=== PATIENT | female | born 1960 | race Caucasian/White ===

== ENCOUNTER → 2017-04-07 | Outpatient (CLI) | payer BC, OTHER ==
[~2017-04-07] MED LIST: ALP25 PO; ESCI10TA8 PO; ESCI20TA38 PO; PANT40TA65 PO; [UNRECOGNIZED DRUG - OTHER]
--- NOTE | 2017-04-08 09:13 | RADIOLOGY IMAGING REPORT ---
FACILITY: [facility] - [place] PATIENT NAME: GENOVEVA BARAJAS : [id number] MR: [id number] V: [id number] EXAM DATE: ORDERING PHYSICIAN: TIANNA ORTIZ TECHNOLOGIST: Sabine Alcazar PROCEDURE:BILATERAL DIGITAL SCREENING MAMMOGRAM WITH CAD ASSISTED INTERPRETATION & 3D TOMOSYNTHESIS COMPARISON:Prior mammograms 02/20/16, 12/21/14, 06/10/11 INDICATIONS:SCREENING FINDINGS: Moderately heterogeneous fibroglandular tissue is seen throughout the breasts. The parenchymal pattern has remained stable allowing for difference in mammographic technique & patient positioning. There is no evidence of malignant appearing mass, malignant appearing calcifications or other secondary sign of malignancy in either breast. DIAGNOSTIC CATEGORY 2--BENIGN FINDING. RECOMMENDATIONS: ROUTINE MAMMOGRAM AND CLINICAL EVALUATION. IMPRESSION: BIRADS 2: Benign finding No significant abnormality is seen Dictated by: Piedad Arroyo M.D. on 04/07/2017 at 15:04 Transcribed by: CHICO on 04/07/2017 at 15:34 Approved by: Piedad Arroyo M.D. on 04/08/2017 at 9:11 [facility]
== END ==
LOC: MAMO 01:18
PROVIDERS: ATTEND Nurse Practitioner Family
DX: Z12.31 Encounter for screening mammogram for malignant neoplasm of breast (principal)
CPT/HCPCS: 77063; 77067

== ENCOUNTER → 2018-05-21 | Outpatient (CLI) | payer BC, OTHER ==
[~2018-05-21] MED LIST changes: +AMIN1CAP5 PO; +AMOX-559 PO; +ESCI20TA8 PO; +FLU30SYR10 IM; +GLUC-198 PO; +HYDR-4225 PO; +MELO-207 PO; +NYST100016 PO; +RANI-366 PO
--- NOTE | 2018-05-25 10:08 | RADIOLOGY IMAGING REPORT ---
FAC[place] [facility] [place]IENT NAME: GENOVEVA BARAJAS : [id number] MR: [id number] V: [id number] EXAM DATE: ORDERING PHYSICIAN: NICOLASA HUFFMAN TECHNOLOGIST: Sabine Alcazar PROCEDURE:BILATERAL DIGITAL SCREENING MAMMOGRAM WITH CAD ASSISTED INTERPRETATION & 3D TOMOSYNTHESIS COMPARISON:Prior mammograms 04/07/17, 02/20/16, 12/21/14, 06/10/11. INDICATIONS:screening FINDINGS: The breasts are heterogeneously dense which can obscure small masses. Just lateral to the mid nipple line on the Right CC view there is suggestion of a small nodular density for which Spot compression view is recommended. The remainder of the parenchymal pattern has remained relatively stable allowing for difference in mammographic technique & patient positioning. DIAGNOSTIC CATEGORY 0--INCOMPLETE: NEED ADDITIONAL IMAGING EVALUATION. RECOMMENDATIONS: ADDITIONAL MAMMOGRAPHIC VIEWS REQUIRED: RIGHT BREAST. IMPRESSION: BIRADS 0: Incomplete. Additional views of the Right breast recommended. Dictated by: Piedad Arroyo M.D. on 05/21/2018 at 12:02 Transcribed by: CHICO on 05/21/2018 at 14:24 Approved by: Piedad Arroyo M.D. on 05/25/2018 at 10:07 [facility]
== END ==
LOC: MAMO 04-23 02:01
PROVIDERS: ATTEND Emergency Medicine
DX: R92.8 Other abnormal and inconclusive findings on diagnostic imaging of breast (principal); Z80.3 Family history of malignant neoplasm of breast
CPT/HCPCS: 77063; 77067

== ENCOUNTER → 2018-06-03 | Outpatient (CLI) | payer BC, OTHER ==
--- NOTE | 2018-06-04 11:26 | RADIOLOGY IMAGING REPORT ---
FACILITY: [facility] - [place] PATIENT NAME: GENOVEVA BARAJAS : [id number] MR: [id number] V: [id number] EXAM DATE: ORDERING PHYSICIAN: NICOLASA HUFFMAN TECHNOLOGIST: Rufina Villa PROCEDURE:RIGHT DIGITAL DIAGNOSTIC MAMMOGRAM WITH CAD ASSISTED INTERPRETATION & 3D TOMOSYNTHESIS COMPARISON:Prior mammograms dated 05/21/18, 04/07/17, 02/20/16, 12/21/14, 06/10/11 INDICATIONS:abnormal mammogram FINDINGS: The patient returns for spot compression views in the Right CC & MLO projections. The small nodular area just lateral to midline in anterior Right breast on the recent Right CC view appeared compressible & apparently represented a summation shadow. DIAGNOSTIC CATEGORY 1--NEGATIVE. RECOMMENDATIONS: ROUTINE MAMMOGRAM AND CLINICAL EVALUATION. IMPRESSION: BIRADS 1: Negative. No significant abnormality of the Right breast is seen. Dictated by: Piedad Arroyo M.D. on 06/03/2018 at 16:08 Transcribed by: DONNA on 06/04/2018 at 10:42 Approved by: Piedad Arroyo M.D. on 06/04/2018 at 11:25 [facility]
== END ==
LOC: MAMO 00:35
PROVIDERS: ATTEND Emergency Medicine
DX: R92.8 Other abnormal and inconclusive findings on diagnostic imaging of breast (principal)
CPT/HCPCS: 77061; 77065